=== PATIENT | male | born 1995 | race Caucasian/White ===

== ENCOUNTER 2020-03-08 20:13 | Emergency (ER) | payer OTHER, SELFPAY ==
[2020-03-08 20:19] VITALS: BP 132/64; PULSE 72; RESP 16; TEMP 37.1; O2SAT 98; BMI 30.5
--- NOTE | 2020-03-08 21:49 | ED.EAR ---
HPI - Ear Problem General Chief complaint: Ear Problems Stated complaint: Ear problem Time Seen by Provider: 03/08/20 21:42 History of Present Illness HPI Narrative: patient is a 24-year-old male presents today with having difficulty hearing from the left ear. No fever no chills. No systemic complaints. No nausea no vomiting. The symptom has been ongoing for last 2 days. Patient tried to use an ear drop for the last 12 hours are no results. Unsure with that ear drop was. Related Data Previous Rx's Medication Instructions Recorded carbamide peroxide [Ear Wax Drops] 5 drp OTIC (EARS) Q12H 4 Days ml 03/08/20 carbamide peroxide [Ear Wax 5 drp OTIC (EARS) DAILY 4 Days ml 03/08/20 Removal Kit] Allergies Allergy/AdvReac Type Severity Reaction Status Date / Time bee pollen [BEE STINGS] Allergy Unknown THROAT Unverified 12/19/19 16:28 CLOSES, SWELLING FACE SEASONAL ALLERGIES Allergy Unknown STUFFY Uncoded 12/19/19 16:28 NOSE, HEAD CONGESTION Review of Systems Review of Systems: Constitutional: No Weight loss, No Fever, No Chills, No Night Sweats, No Fatigue, No Malaise ENT/Mouth: positiveHearing loss, minimal Ear Pain, No Nasal Congestion, No Sinus Pain, No Hoarseness, No sore throat, No Rhinorrhea, No Swallowing Difficulty Eyes: No Eye Pain, No Swelling, No Redness, No Foreign Body, No Discharge, No Vision Changes Cardiovascular: No Chest Pain, No SOB, No Dyspnea on Exertion, No Orthopnea, No Edema, No Palpitations Respiratory: No Cough, No Sputum, No Wheezing, No Smoke Exposure, No Dyspnea Gastrointestinal: No Nausea, No Vomiting, No Diarrhea, No Constipation, No abdominal Pain, No Hematochezia, No Melena Genitourinary: no irregular bleeding, No Dysuria, No Urinary Frequency, No Hematuria, No Urinary Incontinence, No Urgency, No Flank Pain, No Urinary Flow Changes, No Hesitancy Musculoskeletal: No joint pain, No Myalgias, No Joint Swelling Skin: No Skin Lesions, No rash Neuro: No Weakness, No Numbness, No Paresthesias, No Loss of Consciousness, No Dizziness, No Headache Psych: No Anxiety/Panic, No Depression, No SI/HI/AH/VH, No Social Issues, Heme/Lymph: No Bruising, No Bleeding,No Lymphadenopathy Endocrine: No Polyuria, No Polydipsia, No Temperature Intolerance [facility] Past Medical History Attestation statement: The following information was validated with the patient. Medical History Left ACL tear Social History Social History Advance Directives: No Advance Directives Information Provided: Yes Physical Exam Vital Signs: Vital Signs: Last Vital Signs Temp 98.7 F 03/08/20 20:19 Pulse 72 03/08/20 20:19 Resp 16 03/08/20 20:19 BP 132/64 03/08/20 20:19 Pulse Ox 98 03/08/20 20:19 Body Mass Index 30.5 Appearance: Alert. Oriented X3. No acute distress. Eyes: Pupils equal, round and reactive to light. ENT: Pharynx normal. positive impacted cerumen out of the left ear. In the right ear TMs were intact. There is still cerumen noted in the external canal. Neck: Normal inspection. Neck supple. No lymph nodes noted. No crepitus CVS: Normal heart rate and rhythm. Pulses normal. Normal S1 and S2 Respiratory: No respiratory distress. Breath sounds normal. No Wheezing. No rales Abdomen: Soft and nontender. No rigidity. No distention. good BS x4 Skin: Skin warm and dry. Normal skin color. Normal skin turgor. Extremities: No lower extremity edema. Neurovascular intact to all extremities. No Lacerations. No Rash Neuro: Oriented X 3. No motor deficit. No sensory deficit. Moving all extermities. No slurred speech MDM - Ear MDM Narrative Medical decision making narrative: The cerumen is fairly impacted very deep. We will go ahead and give patient Debrox for wax removal. Follow up with ENT on an outpatient basis. Differential Diagnosis Differential diagnosis: Likely cerumen impaction Medical Records Attestation: I reviewed the patient's medical records. Discharge Plan Discharge Clinical Impression: Cerumen impaction Patient Disposition: Home, Self-Care Instructions: Carbamide Peroxide (Into the ear) Prescriptions: New carbamide peroxide [Ear Wax Removal Kit] 6.5 % drops 5 drp otic (ears) DAILY 4 Days RF: 0 carbamide peroxide [Ear Wax Drops] 6.5 % drops 5 drp otic (ears) Q12H 4 Days RF: 0 Referrals: Hubert Sanford [Physician] - 2 days
== END 2020-03-08 22:22 | disposition home or self-care (01) ==
PROVIDERS: Emergency Provider Emergency Medicine Emergency Medical Services; PCP Emergency Medicine
DX: H92.02 Otalgia, left ear (principal); H61.22 Impacted cerumen, left ear; Z79.899 Other long term (current) drug therapy
CPT/HCPCS: 99283; 99284